=== PATIENT | male | born 1945 | race Caucasian/White ===

== ENCOUNTER 2020-12-09 14:47 | Inpatient (IN) | payer OTHER ==
[~2020-12-09] VITALS: Ht 177.8 cm; Wt 76.4 kg
[2020-12-09 14:53] VITALS: BP 100/54
[2020-12-09 15:26] LABS: HEMATOCRIT 27.9 % (42.0-52.0); MEAN CELL VOLUME 101.1 fl (80.0-94.0); MEAN CORPUSCULAR HGB 31.2 pg (27.0-31.0); MEAN CORPUSCULAR HGB CONC 30.8 g/dl (33.0-37.0); MEAN PLATELET VOLUME 10.3 fl (9.6-12.3); PLATELET COUNT AUTOMATED 252 10*3/uL (130-400); RED BLOOD COUNT 2.76 10*6/uL (4.50-5.90); RED CELL DISTRI WIDTH 18.7 % (0-14.5); WHITE BLOOD COUNT 22.5 10*3/uL (4.8-10.8)
[2020-12-09 15:41] LABS: ALBUMIN 3.1 gm/dl (3.1-4.5); CREATININE 3.5 mg/dL (0.70-1.30); POTASSIUM 4.4 mmol/L (3.5-5.1); TOTAL PROTEIN 8.2 gm/dL (6.4-8.2)
[2020-12-09 15:45] LABS: PLATELET SUFFICIENCY NORMAL (NORMAL); TOTAL CELLS COUNTED 100 #CELLS
[2020-12-09 17:18] VITALS: BP 115/47
[2020-12-09 19:12] VITALS: BP 136/61
[2020-12-09 22:03] VITALS: BP 105/75
[2020-12-10] VITALS (8 sets, daily range): BP systolic 117–154; BP diastolic 53–96
[2020-12-10] MEDS ORDERED: LEVOTHYROXINE125 MC1 PO (06:37)
[2020-12-10] MEDS ORDERED: PREGABALIN50 MG PO (06:37)
[2020-12-10] MEDS ORDERED: ASPIRIN ADULT L81 M1 PO (06:38)
[2020-12-10] MEDS ORDERED: VITAMIN D325 MC1 PO (06:39)
[2020-12-10] MEDS ORDERED: HYDROXYZINE HCL25 MG PO ×2 (06:40→10:24)
[2020-12-10] MEDS ORDERED: WARFARIN SODIUM4 MG PO (06:41)
[2020-12-10] MEDS ORDERED: AMIODARONE HYD200 MG PO (06:41)
[2020-12-10] MEDS ORDERED: CARBOXYMETHYLCE15 ML OU (06:41)
[2020-12-10] MEDS ORDERED: NEURONTIN300 MG PO (06:42)
[2020-12-10] MEDS ORDERED: MELATONIN3 MG PO (06:42)
[2020-12-10] MEDS ORDERED: AMLODIPINE BES2.5 MG PO (06:43)
[2020-12-10] MEDS ORDERED: ZOLOFT100 MG PO (06:44)
[2020-12-10] MEDS ORDERED: TRAZODONE50 MG PO (06:44)
[2020-12-10] MEDS ORDERED: ATORVASTATIN CA20 M1 PO (06:44)
[2020-12-10 07:56] LABS: HEMATOCRIT 25.8 % (42.0-52.0); MEAN CELL VOLUME 99.2 fl (80.0-94.0); MEAN CORPUSCULAR HGB 30.8 pg (27.0-31.0); MEAN PLATELET VOLUME 10.3 fl (9.6-12.3); NUCLEATED RED BLOOD CELL 0.1 % (0.0-0.0); PLATELET COUNT AUTOMATED 271 10*3/uL (130-400); RED CELL DISTRI WIDTH 18.2 % (0-14.5); WHITE BLOOD COUNT 26.5 10*3/uL (4.8-10.8)
[2020-12-10 08:07] LABS: CREATININE 4.39 mg/dL (0.70-1.30); POTASSIUM 5.2 mmol/L (3.5-5.1)
[2020-12-10 08:14] LABS: TOTAL CELLS COUNTED 100 #CELLS
[2020-12-10 08:15] LABS: PLATELET SUFFICIENCY NORMAL (NORMAL); POLYCHROMASIA SLIGHT; TOXIC GRANULATION SLIGHT
[2020-12-10] MEDS ORDERED: RENAL VITAMIN0.8 MG PO (10:18)
[2020-12-10] MEDS ORDERED: DOCUSATE SODIU1 EAC1 PO (10:22)
[2020-12-10] MEDS ORDERED: [UNRECOGNIZED DRUG - OTHER] T (10:29)
[2020-12-10] MEDS ORDERED: Coumadin3 MG PO (11:52)
[2020-12-10 12:08] LABS: INTERNATIONAL NORM RATIO 1.8 (2.0-3.5)
[2020-12-10 18:37] LABS: CREATININE 4.66 mg/dL (0.70-1.30); POTASSIUM 5.2 mmol/L (3.5-5.1)
[2020-12-11] VITALS: BP 112/62
[2020-12-11 06:16] LABS: HEMATOCRIT 25.6 % (42.0-52.0); MEAN CELL VOLUME 101.6 fl (80.0-94.0); MEAN CORPUSCULAR HGB CONC 30.5 g/dl (33.0-37.0); MEAN PLATELET VOLUME 10.5 fl (9.6-12.3); NUCLEATED RED BLOOD CELL 0.1 % (0.0-0.0); PLATELET COUNT AUTOMATED 287 10*3/uL (130-400); RED BLOOD COUNT 2.52 10*6/uL (4.50-5.90); RED CELL DISTRI WIDTH 18.4 % (0-14.5); WHITE BLOOD COUNT 24.2 10*3/uL (4.8-10.8)
[2020-12-11 06:21] LABS: ALBUMIN 2.6 gm/dl (3.1-4.5); CREATININE 5.2 mg/dL (0.70-1.30); POTASSIUM 5.3 mmol/L (3.5-5.1); TOTAL PROTEIN 7.1 gm/dL (6.4-8.2)
[2020-12-11 06:22] LABS: INTERNATIONAL NORM RATIO 1.3 (2.0-3.5)
[2020-12-11 06:24] LABS: ACT PARTIAL THROMBO TIME 65.8 SECONDS (20.0-32.1)
[2020-12-11 06:26] LABS: THYROID STIM HORMONE (HS) 11.3 uIU/ml (0.358-4.75)
[2020-12-11 06:43] LABS: BASOPHILS 1 % (0-1); PLATELET SUFFICIENCY NORMAL (NORMAL); TOTAL CELLS COUNTED 100 #CELLS
[2020-12-11 06:44] LABS: BURR CELLS FEW; POLYCHROMASIA SLIGHT; ROULEAUX SLIGHT; TOXIC GRANULATION SLIGHT
[2020-12-11 07:55] LABS: VITAMIN D, 25-HYDROXY 61.3 ng/mL (30-100)
[2020-12-11 12:00] VITALS: BP 120/55
[2020-12-11 16:00] VITALS: BP 137/63
[2020-12-11 20:00] VITALS: BP 132/69
[2020-12-12] VITALS (10 sets, daily range): BP systolic 120–150; BP diastolic 44–66
[2020-12-12 06:20] LABS: ALBUMIN 2.5 gm/dl (3.1-4.5); CREATININE 6.06 mg/dL (0.70-1.30); HEMATOCRIT 23.9 % (42.0-52.0); MEAN CELL VOLUME 101.3 fl (80.0-94.0); MEAN CORPUSCULAR HGB 30.1 pg (27.0-31.0); MEAN CORPUSCULAR HGB CONC 29.7 g/dl (33.0-37.0); MEAN PLATELET VOLUME 10.2 fl (9.6-12.3); NUCLEATED RED BLOOD CELL 0.1 10*3/uL (0.0-0.0); NUCLEATED RED BLOOD CELL 0.5 % (0.0-0.0); PLATELET COUNT AUTOMATED 288 10*3/uL (130-400); RED BLOOD COUNT 2.36 10*6/uL (4.50-5.90); RED CELL DISTRI WIDTH 18.2 % (0-14.5); TOTAL PROTEIN 6.9 gm/dL (6.4-8.2); WHITE BLOOD COUNT 23.4 10*3/uL (4.8-10.8)
[2020-12-12 06:21] LABS: INTERNATIONAL NORM RATIO 1.2 (2.0-3.5)
[2020-12-12 06:28] LABS: THYROID STIM HORMONE (HS) 9.31 uIU/ml (0.358-4.75)
[2020-12-12 07:02] LABS: BURR CELLS MODERATE; POLYCHROMASIA SLIGHT; SCHISTOCYTES FEW; TOTAL CELLS COUNTED 100 #CELLS
[2020-12-12 07:03] LABS: PLATELET SUFFICIENCY NORMAL (NORMAL); ROULEAUX SLIGHT; TOXIC GRANULATION SLIGHT
[2020-12-13] VITALS: BP 135/49
[2020-12-13 08:09] VITALS: BP 120/77
[2020-12-13 08:46] LABS: HEMATOCRIT 24.1 % (42.0-52.0); MEAN CELL VOLUME 100.4 fl (80.0-94.0); MEAN CORPUSCULAR HGB 30.8 pg (27.0-31.0); MEAN CORPUSCULAR HGB CONC 30.7 g/dl (33.0-37.0); MEAN PLATELET VOLUME 9.5 fl (9.6-12.3); NUCLEATED RED BLOOD CELL 0.2 10*3/uL (0.0-0.0); NUCLEATED RED BLOOD CELL 1.1 % (0.0-0.0); PLATELET COUNT AUTOMATED 279 10*3/uL (130-400); RED CELL DISTRI WIDTH 18.2 % (0-14.5); WHITE BLOOD COUNT 20.5 10*3/uL (4.8-10.8)
[2020-12-13 08:56] LABS: INTERNATIONAL NORM RATIO 1.6 (2.0-3.5)
[2020-12-13 09:02] LABS: ALBUMIN 2.6 gm/dl (3.1-4.5); CREATININE 2.54 mg/dL (0.70-1.30); TOTAL PROTEIN 7.3 gm/dL (6.4-8.2)
[2020-12-13 09:08] LABS: PLATELET SUFFICIENCY NORMAL (NORMAL); POLYCHROMASIA SLIGHT; TOTAL CELLS COUNTED 100 #CELLS
[2020-12-13 09:09] LABS: ROULEAUX SLIGHT; TARGET CELLS FEW; TOXIC GRANULATION SLIGHT
[2020-12-13 12:24] VITALS: BP 122/80
[2020-12-13 16:19] VITALS: BP 144/68
[2020-12-13 20:00] VITALS: BP 126/54
[2020-12-14] VITALS: BP 100/34
[2020-12-14 06:36] LABS: HEMATOCRIT 25.4 % (42.0-52.0); MEAN CELL VOLUME 101.6 fl (80.0-94.0); MEAN CORPUSCULAR HGB 31.2 pg (27.0-31.0); MEAN CORPUSCULAR HGB CONC 30.7 g/dl (33.0-37.0); MEAN PLATELET VOLUME 9.8 fl (9.6-12.3); NUCLEATED RED BLOOD CELL 0.3 10*3/uL (0.0-0.0); NUCLEATED RED BLOOD CELL 1.7 % (0.0-0.0); PLATELET COUNT AUTOMATED 305 10*3/uL (130-400); RED CELL DISTRI WIDTH 18.8 % (0-14.5); WHITE BLOOD COUNT 20.5 10*3/uL (4.8-10.8)
[2020-12-14 06:57] LABS: INTERNATIONAL NORM RATIO 1.9 (2.0-3.5)
[2020-12-14 06:59] LABS: ACT PARTIAL THROMBO TIME 68.4 SECONDS (20.0-32.1)
[2020-12-14 07:01] LABS: BASOPHILS 1 % (0-1); BURR CELLS FEW; OVALOCYTES FEW; PLATELET SUFFICIENCY NORMAL (NORMAL); POLYCHROMASIA SLIGHT; TOTAL CELLS COUNTED 100 #CELLS
[2020-12-14 08:00] VITALS: BP 123/49
[2020-12-14 12:00] VITALS: BP 154/56
[2020-12-14 16:00] VITALS: BP 133/63
[2020-12-14 20:00] VITALS: BP 102/85
[2020-12-15 06:59] LABS: HEMATOCRIT 25.6 % (42.0-52.0); MEAN CELL VOLUME 100.8 fl (80.0-94.0); MEAN CORPUSCULAR HGB 31.5 pg (27.0-31.0); MEAN CORPUSCULAR HGB CONC 31.3 g/dl (33.0-37.0); MEAN PLATELET VOLUME 9.5 fl (9.6-12.3); NUCLEATED RED BLOOD CELL 0.5 10*3/uL (0.0-0.0); PLATELET COUNT AUTOMATED 348 10*3/uL (130-400); RED BLOOD COUNT 2.54 10*6/uL (4.50-5.90); RED CELL DISTRI WIDTH 18.7 % (0-14.5); WHITE BLOOD COUNT 25.6 10*3/uL (4.8-10.8)
[2020-12-15 07:23] LABS: INTERNATIONAL NORM RATIO 3.3 (2.0-3.5)
[2020-12-15 07:29] LABS: ACT PARTIAL THROMBO TIME > 139.0 SECONDS (20.0-32.1); ALBUMIN 2.3 gm/dl (3.1-4.5); CREATININE 4.16 mg/dL (0.70-1.30); POTASSIUM 4.3 mmol/L (3.5-5.1)
[2020-12-15 07:30] LABS: TOTAL PROTEIN 6.8 gm/dL (6.4-8.2)
[2020-12-15 07:49] LABS: PLATELET SUFFICIENCY NORMAL (NORMAL); POLYCHROMASIA SLIGHT; TOTAL CELLS COUNTED 100 #CELLS
[2020-12-15 08:35] VITALS: BP 120/41
[2020-12-15 09:04] LABS: ABG BASE EXCESS -1.7 mmol/L (-2.0-2.0); ARTERIAL BLOOD GAS PH 7.211 (7.35-7.45); ARTERIAL BLOOD GAS PO2 458.2 (80-90)
[2020-12-15 09:09] LABS: HEMATOCRIT 24.5 % (42.0-52.0); MEAN CELL VOLUME 102.1 fl (80.0-94.0); MEAN CORPUSCULAR HGB 31.3 pg (27.0-31.0); MEAN CORPUSCULAR HGB CONC 30.6 g/dl (33.0-37.0); MEAN PLATELET VOLUME 9.5 fl (9.6-12.3); NUCLEATED RED BLOOD CELL 0.6 10*3/uL (0.0-0.0); NUCLEATED RED BLOOD CELL 2.2 % (0.0-0.0); PLATELET COUNT AUTOMATED 328 10*3/uL (130-400); WHITE BLOOD COUNT 26.4 10*3/uL (4.8-10.8)
[2020-12-15 09:33] LABS: ALBUMIN 2.1 gm/dl (3.1-4.5); CREATININE 3.33 mg/dL (0.70-1.30); POTASSIUM 4.1 mmol/L (3.5-5.1); TOTAL PROTEIN 6.2 gm/dL (6.4-8.2)
[2020-12-15 09:37] LABS: PLATELET SUFFICIENCY NORMAL (NORMAL); POLYCHROMASIA SLIGHT; TOTAL CELLS COUNTED 100 #CELLS
[2020-12-15 09:38] LABS: TROPONIN I 0.08 ng/ml (<0.045)
[2020-12-15 10:00] VITALS: BP 97/32
[2020-12-15 12:00] VITALS: BP 105/41
[2020-12-15 16:00] VITALS: BP 146/57
[2020-12-15 20:00] VITALS: BP 154/54
[2020-12-16] VITALS: BP 138/51
[2020-12-16 04:00] VITALS: BP 130/51
[2020-12-16 08:00] VITALS: BP 146/55
[2020-12-16 12:00] VITALS: BP 140/47
[2020-12-16 16:00] VITALS: BP 100/40
[2020-12-16 20:00] VITALS: BP 129/24; BP 130/44
[2020-12-17] VITALS: BP 135/38
[2020-12-17 04:44] LABS: HEMATOCRIT 26.5 % (42.0-52.0); MEAN CELL VOLUME 103.5 fl (80.0-94.0); MEAN CORPUSCULAR HGB 31.3 pg (27.0-31.0); MEAN CORPUSCULAR HGB CONC 30.2 g/dl (33.0-37.0); MEAN PLATELET VOLUME 9.1 fl (9.6-12.3); NUCLEATED RED BLOOD CELL 0.3 10*3/uL (0.0-0.0); NUCLEATED RED BLOOD CELL 1.8 % (0.0-0.0); PLATELET COUNT AUTOMATED 341 10*3/uL (130-400); RED BLOOD COUNT 2.56 10*6/uL (4.50-5.90); RED CELL DISTRI WIDTH 20.4 % (0-14.5); WHITE BLOOD COUNT 19.2 10*3/uL (4.8-10.8)
[2020-12-17 05:01] LABS: ALBUMIN 2.2 gm/dl (3.1-4.5); CREATININE 5.3 mg/dL (0.70-1.30); POTASSIUM 4.7 mmol/L (3.5-5.1); TOTAL PROTEIN 6.7 gm/dL (6.4-8.2)
[2020-12-17 05:36] LABS: INTERNATIONAL NORM RATIO 5.8 (2.0-3.5)
[2020-12-17 06:56] LABS: BURR CELLS FEW; POLYCHROMASIA SLIGHT; TOTAL CELLS COUNTED 100 #CELLS
[2020-12-17 06:57] LABS: PLATELET SUFFICIENCY NORMAL (NORMAL); SCHISTOCYTES FEW
[2020-12-17 08:00] VITALS: BP 127/58
[2020-12-17] MEDS ORDERED: NEURONTIN300 MG PO (11:25)
[2020-12-17] MEDS ORDERED: PERCOCET 5-3251 EACH PO (11:26)
[2020-12-17] MEDS ORDERED: ZOSYN 2.252.25 GM/51 IV (11:37)
[2020-12-17] MEDS ORDERED: VANCOMYCIN750 MG/152 IV (11:37)
[2020-12-17 12:00] VITALS: BP 117/25
[2020-12-17] MEDS ORDERED: Coumadin3 MG PO (13:52)
== END 2020-12-17 15:51 | DRG 853 ==
LOC: ED 14:47 → 5E 12-10 09:44 → EDHOLD 12-10 09:44 → ICCU 12-10 09:44 → EDHOLD 12-10 10:17 → 5E 12-10 10:52 → ICCU 12-15 08:27
PROVIDERS: Emergency Medicine; Family Medicine; Hospitalist; Registered Nurse; Student in an Organized Health Care Education/Training Program; ADMIT Internal Medicine; ATTEND Internal Medicine
PROC: 0PBQ0ZX Excision of Left Metacarpal, Open Approach, Diagnostic (ICD-10-PCS; principal; 2020-12-12)
PROC: 0X6P0Z1 Detachment at Left Index Finger, High, Open Approach (ICD-10-PCS; 2020-12-12)
PROC: 5A1D70Z Performance of Urinary Filtration, Intermittent, Less than 6 Hours Per Day (ICD-10-PCS; 2020-12-12)
PROC: 0X6T0Z1 Detachment at Left Ring Finger, High, Open Approach (ICD-10-PCS; 2020-12-12)
PROC: 0X9H3ZZ Drainage of Left Wrist Region, Percutaneous Approach (ICD-10-PCS; 2020-12-12)
PROC: 5A1D70Z Performance of Urinary Filtration, Intermittent, Less than 6 Hours Per Day (ICD-10-PCS; 2020-12-13)
PROC: 5A1D70Z Performance of Urinary Filtration, Intermittent, Less than 6 Hours Per Day (ICD-10-PCS; 2020-12-15)
PROC: 0BH17EZ Insertion of Endotracheal Airway into Trachea, Via Natural or Artificial Opening (ICD-10-PCS; 2020-12-15)
PROC: 5A1935Z Respiratory Ventilation, Less than 24 Consecutive Hours (ICD-10-PCS; 2020-12-15)
PROC: 02HV33Z Insertion of Infusion Device into Superior Vena Cava, Percutaneous Approach (ICD-10-PCS; 2020-12-16)
PROC: 5A1D70Z Performance of Urinary Filtration, Intermittent, Less than 6 Hours Per Day (ICD-10-PCS; 2020-12-17)
DX: A41.9 Sepsis, unspecified organism (principal); N18.6 End stage renal disease; R09.2 Respiratory arrest; E87.1 Hypo-osmolality and hyponatremia; M86.642 Other chronic osteomyelitis, left hand; E44.0 Moderate protein-calorie malnutrition; E11.52 Type 2 diabetes mellitus with diabetic peripheral angiopathy with gangrene; I96 Gangrene, not elsewhere classified; I12.0 Hypertensive chronic kidney disease with stage 5 chronic kidney disease or end stage renal disease; M00.9 Pyogenic arthritis, unspecified; E87.5 Hyperkalemia; D53.9 Nutritional anemia, unspecified; R74.01 Elevation of levels of liver transaminase levels; E11.65 Type 2 diabetes mellitus with hyperglycemia; I48.0 Paroxysmal atrial fibrillation; F32.9 Major depressive disorder, single episode, unspecified; E78.2 Mixed hyperlipidemia; E11.22 Type 2 diabetes mellitus with diabetic chronic kidney disease; G47.01 Insomnia due to medical condition; R79.1 Abnormal coagulation profile; E11.69 Type 2 diabetes mellitus with other specified complication; E11.42 Type 2 diabetes mellitus with diabetic polyneuropathy; Z66 Do not resuscitate; E83.39 Other disorders of phosphorus metabolism; Z51.5 Encounter for palliative care; M65.832 Other synovitis and tenosynovitis, left forearm; Z20.822 Contact with and (suspected) exposure to COVID-19; I25.10 Atherosclerotic heart disease of native coronary artery without angina pectoris; Z99.2 Dependence on renal dialysis; Z95.1 Presence of aortocoronary bypass graft; Z89.022 Acquired absence of left finger(s); Z89.512 Acquired absence of left leg below knee; Z89.511 Acquired absence of right leg below knee; Z80.1 Family history of malignant neoplasm of trachea, bronchus and lung; Z82.5 Family history of asthma and other chronic lower respiratory diseases; Z79.899 Other long term (current) drug therapy; Z79.82 Long term (current) use of aspirin; Z68.24 Body mass index [BMI] 24.0-24.9, adult